=== PATIENT | female | born 1995 | race Hispanic/Latino ===

== ENCOUNTER → 2018-11-01 16:09 | Outpatient (CLI) | payer MEDICAID, SELFPAY ==
[2018-11-01 18:54] LABS: Hep C Virus Ab w/Reflex Quant NEGATIVE s/c (NEGATIVE)
== END ==
DX: Z34.82 Encounter for supervision of other normal pregnancy, second trimester (principal)
CPT/HCPCS: 36415; 86787; 86803

== ENCOUNTER → 2018-12-27 10:43 | Outpatient (CLI) | payer MEDICAID, SELFPAY ==
[2018-12-27 12:29] LABS: Hematocrit 35.3 % (36-46); Hemoglobin 12.2 g/dL (12.0-16.0)
[2018-12-27 12:57] LABS: GTT (PREG) 1 Hour PP 50gm Dose 129 mg/dL (76-139)
== END ==
DX: Z34.82 Encounter for supervision of other normal pregnancy, second trimester (principal); Z3A.26 26 weeks gestation of pregnancy
CPT/HCPCS: 36415; 82950; 85014; 85018

== ENCOUNTER → 2019-02-25 09:33 | Outpatient (CLI) | payer MEDICAID, SELFPAY ==
[2019-02-26 14:07] LABS: Strep Grp B PCR NEG for Grp B Strep
== END ==
DX: Z36.85 Encounter for antenatal screening for Streptococcus B (principal); Z3A.35 35 weeks gestation of pregnancy
CPT/HCPCS: 87653

== ENCOUNTER 2019-03-22 23:14 | Inpatient (IN) | payer MEDICAID, SELFPAY ==
--- NOTE | 2019-03-23 00:22 | P.HPOB_ITS ---
OB HPI Date/Time Date of admission: 03/23/19 Date Patient Seen: 03/23/19 Time Patient Seen: 00:23 History of Present Condition Chief complaint: Evaluation of Labor : 3 Para: 2 Estimated Date of Delivery: 04/01/19 Estimated Gestational Age (weeks): 38+ 5 Narrative: Melita Jones is a 23 year old female 3 para 2 at 38-,5/7 weeks gestation who presented in active labor History of Present care: limited care, initiated at week # (17), number of visits (10) and pounds weight gain (25) Dating criteria: LMP confirmed by 2nd trimester US Ultrasounds: normal mid trimester US Obstetrical complications: none Medical complications: none Preadmission Labs Blood type: O (+) positive -: Antibody screen: negative, GBS status: negative, HBsAG: negative, HIV: negative and RPR/VDLR: negative -: Chlamydia screen: not detected and Gonorrhea screen: not detected -: Rubella: immune and Varicella: immune HCT: 35.3 HCAB: negative PAP: Normal Integrated screen: Normal 1 hr GTT: 129 Prior (ies) History: 2 in [place]. H/O rapid labors Evaluation Evaluation Baseline heart rate: 140 Variability: Moderate (11-25) monitor accelerations: Present monitor decelerations: Absent Contraction Frequency (minutes): 3 Uterine Contraction Intensity: Strong/Firm Category of Tracing: I Cervical dilation (cm): 6 Cervical effacement (%): 100 station: -1 [facility] Medical History (Updated 03/23/19 @ 00:30 by Anabella Terry MD) Migraine headache (Acute) Family History (Updated 03/23/19 @ 00:31 by Anabella Terry MD) Father Hypertension Grandmother Cancer Social History Smoking Status: Never smoker Family History (Updated 03/23/19 @ 00:31 by Anabella Terry MD) Father Hypertension Grandmother Cancer Social History Smoking Status: Never smoker Meds Home Medications and Allergies Home Medications Medication Instructions Recorded Confirmed Type prenat.vits,jerman,cwn-ofsc-kgbov 1 tab PO DAILY #30 tab 01/07/19 Rx Allergies Allergy/AdvReac Type Severity Reaction Status Date / Time No Known Drug Allergies Allergy Verified 11/01/18 15:39 Exam Vital Signs (past 8 hours): Generally: No acute distress Lungs: Clear to auscultation bilaterally Cardiovascular: Regular rate and rhythm Fundal height: 38 cm Estimated weight: 7-1/2 lbs Extremities: No edema Objective Labs Result Diagrams: 03/22/19 23:40 Assessment and Plan Assessment and Plan Assessment and Plan narrative: Assessment: 23-year-old 3 para 2 at 38-,5/7 weeks gestation and active labor History of precipitous delivery Plan: Artificial rupture of membranes with copious amounts of clear amniotic fluid Expected management to spontaneous vaginal delivery Time Spent with Patient Total time spent with greater than 50% in coordination of care (as documented) at patient's floor/unit and/or counseling patient:: 15-24 minutes
[2019-03-23 00:24] LABS: Add Manual Diff / Slide Review NO; Basophils Absolute Auto 0 /uL (0-100); Basophils Percent Auto 0.4 % (0-2); Eosinophils Absolute Auto 400 /uL (0-450); Eosinophils Percent Auto 3.7 % (2-4); Hematocrit 37.9 % (36-46); Hemoglobin 13.1 g/dL (12.0-16.0); Lymphocytes Absolute Auto 2900 /uL (1100-4500); Lymphocytes Percent Auto 25.5 % (25-40); Mean Corpuscular HGB Conc 34.6 % (30-36); Mean Corpuscular Hemoglobin 29.5 PG (26-34); Mean Corpuscular Volume 85.3 fL (80-100); Monocytes Absolute Auto 800 /uL (0-900); Monocytes Percent Auto 6.7 % (3-14); Neutrophils Absolute Auto 7100 /uL (1500-7000); Neutrophils Percent Auto 63.7 % (50-75); Platelet Count 270 X10^3/uL (150-400); Red Blood Cell Count 4.44 X10^6/uL (4.0-5.2); Red Cell Distribution Width 13.4 % (11.6-14.8); White Blood Cell Count 11.2 X10^3/uL (4.5-11.0)
[2019-03-23] MEDS: OXYTOCIN 10 UNIT/ML VIAL IM (01:10)
[2019-03-23 04:24] VITALS: BP 120/78
[2019-03-23] MEDS: DOCUSATE 250 MG CAPSULE PO (08:41)
[2019-03-23] MEDS: IBUPROFEN 600 MG TABLET PO (08:42)
[2019-03-23] MEDS: PRENATAL VIT,CALC/IRON/FOLIC 1 TABLET 1 TAB PO (08:42)
--- NOTE | 2019-03-23 17:32 | PM.OBPRVD ---
 Events: Labor Augmentation Labor & Delivery Delivery date: 03/23/19 Intrapartal events: Precipitous Labor < 3 hours Cervical ripening method: none Induction method: none Delivery augmentation: rupture of membranes Delivery monitor: external FHT and external uterine Route of delivery: Episiotomy description: None L&D Laceration Description: None Estimated blood loss (mL): 100 Anesthesia type: None Narrative: Pa complete and pushed x1. At 1:00 a.m., a live female infant delivered spontaneously over an intact perineum. The cord was double clamped and cut. Cord bloods were obtained. The placenta delivered intact with a 3 vessel cord at 1:10 a.m.. Fundus was massaged to firm. Pitocin was given in the IV fluids. No lacerations were visualized. Estimated blood loss 100 cc. Apgars 9 at 1 min and 9 at 5 min. Weight 6 lb 6.1 oz. No analgesia. . Mom and infant stable to recovery. Plan for aftercare: To routine care
--- NOTE | 2019-03-23 17:35 | P.PNOB_ITS ---
Subjective - OB Subjective Patient comments: no complaints [place] baby status: doing well and nursing well feeding status: exclusively breast feeding Date Patient Seen: 03/23/19 Time Patient Seen: 13:45 Interval history: Patient is a 23-year-old 3 para 3 postop day # number 0-1 status post precipitous vaginal delivery. going well. Bleeding minimal. Exam Vital Signs (past 8 hours): Generally: Patient is sitting up in bed, nursing , no acute distress Fundus: Firm at U -1 Extremities: Negative Homans, no edema Objective Labs Result Diagrams: 03/22/19 23:40 Labs: Laboratory Results - last 24 hr 03/22/19 03/22/19 23:40 23:40 WBC 11.2 H RBC 4.44 Hgb 13.1 Hct 37.9 MCV 85.3 MCH 29.5 MCHC 34.6 RDW 13.4 Plt Count 270 Neut % (Auto) 63.7 Lymph % (Auto) 25.5 [place] % (Auto) 6.7 Eos % (Auto) 3.7 Baso % (Auto) 0.4 Neut # (Auto) 7100 H Lymph # (Auto) 2900 [place] # (Auto) 800 Eos # (Auto) 400 Baso # (Auto) 0 Blood Type O Positive Antibody Screen Negative Assessment & Plan Plan day: 1 plan OB: routine care Time Spent With Patient Time: Total time spent is greater than 50% in coordination of care (as documented) at patient's floor/unit and/or counseling patient: Time with patient: less than 15 minutes
[2019-03-24 05:34] LABS: Hematocrit 37.7 % (36-46); Hemoglobin 13.1 g/dL (12.0-16.0)
--- NOTE | 2019-03-24 09:09 | P.DS_ITS ---
Discharge Providers Provider Date of admission: 03/22/19 23:14 Discharge Date: 03/24/19 Consults: 03/23/19 03:07 Consult to [employer] Routine Comment: Discharge provider: Jung Mancera MD Summary Hospital Course Date Patient Seen: 03/24/19 Time Patient Seen: 09:09 Procedures: Spontaneous vaginal delivery Hospital Course: The patient is a 23-year-old female three para two presented in active labor. Patient was scheduled for induction but presented in active labor. Patient had a rapid labor and spontaneous vaginal delivery of a live-born female infant with scores of eight at 1 minute nine at 5 minutes in good condition. the patient did well. She was progressivelalimented and ambulated. She was discharged home for follow-up in four weeks Peripartum Data Delivery Method: Natural Vaginal Laceration description: None Procedures: Spontaneous vaginal delivery complications: none Status at Discharge Cognitive/behavioral status at discharge: oriented Functional status at discharge: independent ambulation Overall status at discharge: patient is progressing back to baseline Time Spent with Patient Time attestation: Total time spent providing and/or coordinating discharge services: Time spent: Less than 30 minutes Objective Labs Result Diagrams: 03/24/19 05:00 Labs: Laboratory Results - last 24 hr 03/24/19 05:00 Hgb 13.1 Hct 37.7 Exam Vital Signs (past 8 hours): Fundus U minus four Lochia scant Perineum without ecchymosis Discharge Plan Discharge Plan Patient Disposition: Home Discharge Med Rec/Prescriptions Prescriptions: New oxycodone-acetaminophen 5-325 mg Tablet 2 tab PO Q4H PRN (Reason: Post Delivery) Qty: 10 RF: 0 ibuprofen 600 mg Tablet 600 mg PO Q6HR PRN (Reason: Pain, Mild (1-3)) Qty: 14 RF: 0 docusate sodium 250 mg Capsule 250 mg PO DAILY Qty: 10 RF: 0 [id number]-Q-Qpunlc Cream 1 applic topical PRN PRN (Reason: Tenderness) Qty: 1 RF: 0 Prenatabs Rx 29 mg iron- 1 mg Tablet 1 tab PO DAILY Qty: 30 RF: 0 Discontinued prenat.vits,jerman,ims-zuza-muogt tablet 1 tab PO DAILY Qty: 30 RF: 11 Follow up/Referrals: Jung Mancera MD [Physician] - 1 Month Provider Discharge Instructions Diet: Diet as Tolerated Activity: Up ad crow Skin/Wound/Dressing Care Skin care: The perineum clean and dry Report to your healthcare provider any signs of infection, such as:: chills, fever, increased pain, unusual drainage and unusual redness
== END 2019-03-24 10:25 | disposition home or self-care (01) | DRG 807 ==
PROVIDERS: Admitting Provider Obstetrics & Gynecology; Visit Provider Obstetrics & Gynecology
DX: O62.3 Precipitate labor (principal); Z37.0 Single live birth; Z3A.38 38 weeks gestation of pregnancy
CPT/HCPCS: 36415; 59050; 59409; 85014; 85018; 85025; 86850; 86900; 86901; G0379; J2590